=== PATIENT | female | born 1985 | race Caucasian/White ===

== ENCOUNTER 2017-06-24 15:04 | Outpatient (RCR) | payer BC ==
[~2017-06-24 15:04] MED LIST: IBUPROFEN; OXYC-471 PO; PERCOCET; STOOL SOFTENER
== END 2017-07-15 17:00 | disposition home or self-care (01) ==
PROVIDERS: ATTEND Orthopaedic Surgery
DX: M25.562 Pain in left knee (principal); X58.XXXA Exposure to other specified factors, initial encounter; Y93.54 Activity, bowling

== ENCOUNTER → 2017-07-02 | Outpatient (CLI) | payer BC ==
--- NOTE | 2017-07-02 11:36 | Diagnostic Imaging Report ---
PROCEDURE: MRI left joint lower extremity without contrast. TECHNIQUE: Multiplanar, multisequence non contrast-enhanced MRI of the left lower extremity was accomplished. INDICATION: Anterior and medial left knee pain. COMPARISON: No prior studies are available for comparison. FINDINGS: The marrow signal intensity is unremarkable. No geographic marrow lesion or bone bruise is identified. Trace pleural fluid is identified. There is some mild irregularity involving the articular cartilage of the lateral patellar facet. No definite osteochondral defect is seen. The ACL and PCL are intact. The medial and lateral collateral ligament complexes are intact. The extensor mechanism is unremarkable. The medial and lateral menisci are intact. No tear or displaced meniscal fragment is identified. 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 No ligamentous or meniscal tear is detected. Dictated by: Dictated on workstation # [id number]
== END ==
LOC: RAD 10:05
PROVIDERS: ATTEND Orthopaedic Surgery
DX: M22.42 Chondromalacia patellae, left knee (principal)
CPT/HCPCS: 73721

== ENCOUNTER 2021-11-25 01:07 | Emergency (ER) | payer OTHER, BC ==
[~2021-11-25] VITALS: Ht 157.5 cm; Wt 84.0 kg
[2021-11-25 01:07] VITALS: BP 151/89
[~2021-11-25 01:07] MED LIST changes: -OXYC-471 PO; +OXYC1TAB11 PO
[2021-11-25] MEDS ORDERED: fentaNYL INJ 100 MCG/2 ML AMP IVP ONE (01:30)
[2021-11-25] MEDS ORDERED: NS IV 1000 ML 1,000 ML IV SCH (01:30)
[2021-11-25] MEDS ORDERED: TETANUS,DIPTH,PERTUSS P/F (BOOSTRIX) 0.5 ML VIAL IM ONE (01:30)
[2021-11-25] MEDS ORDERED: ONDANSETRON 4 MG/2 ML (SDV) Z0FRAN IVP ONE (01:30)
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
[2021-11-25 01:34] LABS: BASOPHILS # (AUTO) 0.1 10^3/uL (0.0-0.1); BASOPHILS % (AUTO) 1 % (0-10); EOSINOPHILS # (AUTO) 0.3 10^3/uL (0.0-0.3); EOSINOPHILS % (AUTO) 3 % (0-10); HEMATOCRIT 41 % (35-52); LYMPHOCYTES # (AUTO) 5.9 10^3/uL (1.0-4.0); LYMPHOCYTES % (AUTO) 44 % (12-44); MEAN CORPUSCULAR HEMOGLOBIN 32 pg (25-34); MEAN CORPUSCULAR HGB CONC 34 g/dL (32-36); MEAN CORPUSCULAR VOLUME 94 fL (80-99); MEAN PLATELET VOLUME 9.5 fL (9.0-12.2); MONOCYTES # (AUTO) 0.9 10^3/uL (0.0-1.0); MONOCYTES % (AUTO) 7 % (0-12); NEUTROPHILS % (AUTO) 45 % (42-75); PLATELET COUNT 347 10^3/uL (130-400); WHITE BLOOD COUNT 13.2 10^3/uL (4.3-11.0)
[2021-11-25 01:38] LABS: ALBUMIN 4.2 GM/DL (3.2-4.5)
[2021-11-25 01:39] LABS: POTASSIUM 3.4 MMOL/L (3.6-5.0)
[2021-11-25 01:40] LABS: CALCIUM 8.4 MG/DL (8.5-10.1)
[2021-11-25 01:41] LABS: TOTAL PROTEIN 7.5 GM/DL (6.4-8.2)
[2021-11-25 01:43] LABS: BILIRUBIN,TOTAL 0.4 MG/DL (0.1-1.0)
[2021-11-25 01:45] LABS: CREATININE SERUM 0.76 MG/DL (0.60-1.30)
[2021-11-25 02:26] LABS: BILIRUBIN,URINE NEGATIVE (NEGATIVE); CLARITY,URINE SL CLOUDY; COLOR,URINE YELLOW; GLUCOSE, URINE (UA) NEGATIVE (NEGATIVE); KETONES,URINE NEGATIVE (NEGATIVE); LEUKOCYTE ESTERASE ,URINE NEGATIVE (NEGATIVE); NITRITE,URINE NEGATIVE (NEGATIVE); PROTEIN,URINE NEGATIVE (NEGATIVE)
[2021-11-25 02:59] LABS: BACTERIA,URINE TRACE /HPF
[2021-11-25] MEDS ORDERED: IOHEXOL 350 MG/ML 100 ML (OMNIPAQUE 350) VIAL IV ONE (03:15)
[2021-11-25] MEDS ORDERED: HOLD METFORMIN - RECEIVED CONTRAST 20 ML VIAL IV SCH (03:15)
[2021-11-25] MEDS ORDERED: NS 100 ML (IVPB) BAG IV ONE (03:15)
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
== END 2021-11-25 03:59 | disposition home or self-care (01) ==
LOC: EDUNIT# 01:07 → ER 01:08
DX: S20.01XA Contusion of right breast, initial encounter (principal); S30.1XXA Contusion of abdominal wall, initial encounter; S70.01XA Contusion of right hip, initial encounter; S80.812A Abrasion, left lower leg, initial encounter; D72.829 Elevated white blood cell count, unspecified; F10.10 Alcohol abuse, uncomplicated; Z28.310 Unvaccinated for COVID-19; Y90.7 Blood alcohol level of 200-239 mg/100 ml; V49.50XA Passenger injured in collision with unspecified motor vehicles in traffic accident, initial encounter; Y92.410 Unspecified street and highway as the place of occurrence of the external cause
CPT/HCPCS: 71045; 71260; 72125; 72170; 74177; 80053; 81000; 85025; 99284; G0480; 36415; 80320; 90715